=== PATIENT | female | born 1995 | race African-American/Black ===

== ENCOUNTER 2018-03-12 08:14 | Emergency (ER) | payer MEDICAID ==
[~2018-03-12] VITALS: Ht 160 cm; Wt 93.4 kg
[2018-03-12 08:25] VITALS: BP 138/78
[2018-03-12] MEDS ORDERED: cefTRIAXone SOD 1,000 MG VL IM ONE (10:15)
[2018-03-12] MEDS ORDERED: methylPREDNISolone SOD SUCC 125 MG/2 ML VL IM ONE (10:15)
[2018-03-12] MEDS ORDERED: LIDOCAINE W/ EPINEPHRINE 1 % INJ 30ML ONE (10:37)
== END 2018-03-12 10:48 | disposition home or self-care (01) ==
LOC: ER 08:14
DX: J02.9 Acute pharyngitis, unspecified (principal); Z90.49 Acquired absence of other specified parts of digestive tract
CPT/HCPCS: 96372; 99283; J0696; J2001; J2930